=== PATIENT | female | born 1950 | race Caucasian/White ===

== ENCOUNTER → 2022-03-26 | Outpatient (CLI) | payer MEDICARE, OTHER | LOC: KOH-I 03-13 10:30 | DX: K86.1 Other chronic pancreatitis (principal); R10.816 Epigastric abdominal tenderness; N81.89 Other female genital prolapse | CPT/HCPCS: 74176 ==

== ENCOUNTER → 2022-06-22 | Outpatient (CLI) | payer MEDICARE, OTHER | LOC: EXRD 14:15 | DX: M25.571 Pain in right ankle and joints of right foot (principal); M25.572 Pain in left ankle and joints of left foot; G60.3 Idiopathic progressive neuropathy | CPT/HCPCS: 93925 ==